=== PATIENT | female | born 1985 | race Caucasian/White ===

== ENCOUNTER 2017-08-20 05:20 | Inpatient (IN) | payer BC ==
[~2017-08-20] VITALS: Ht 162.6 cm; Wt 66.2 kg
[2017-08-20 05:20] VITALS: BP_SYST 118
[2017-08-20 06:30] VITALS: BP_SYST 123
[2017-08-20] MEDS ORDERED: OXYCODONE/ACETAMINOPHEN *10*mg/325 mg TABLET PO PRN ×3 (07:00→12:00)
[2017-08-20] MEDS ORDERED: CEFAZOLIN 2 GM IVPB PREMIX 50 ML IV SCH (07:00)
[2017-08-20] MEDS ORDERED: HYDROmorphone 1 MG INJ. 1 MG/ML AMPUL IVP PRN ×2 (07:00)
[2017-08-20] MEDS ORDERED: ZOLPIDEM TARTRATE 5 MG TABLET PO PRN (07:00)
[2017-08-20] MEDS ORDERED: HYDROmorphone 2 MG/ML VIAL IVP PRN (07:00)
[2017-08-20 07:50] VITALS: BP_SYST 122
[2017-08-20] MEDS ORDERED: LR 1,000 ML IV ONE (11:27)
[2017-08-20] MEDS ORDERED: NALBUPHINE HCL 10 MG/ML AMP IVP PRN (11:30)
[2017-08-20] MEDS ORDERED: NALOXONE HCL 0.4 MG/ML AMP (NARCAN) IVP PRN (11:30)
[2017-08-20] MEDS ORDERED: ONDANSETRON HCL 4 MG/2 ML VIAL IVP PRN ×2 (11:30)
[2017-08-20] MEDS ORDERED: KETOROLAC TROMETHAMINE 30 MG VIAL IM PRN (11:30)
[2017-08-20] MEDS ORDERED: ePHEDrine sulfate 50 MG/ML VIAL IVP PRN (11:30)
[2017-08-20] MEDS ORDERED: fentaNYL CITRATE/PF 100 MCG/2 ML AMP IVP PRN (11:30)
[2017-08-20] MEDS ORDERED: DEXAMETHASONE SOD PHOSPHATE 4 MG/ML VIAL IVP ONE (11:54)
[2017-08-20] MEDS ORDERED: SEVOFLURANE 15 MIN GAS INH ONE (11:54)
[2017-08-20] MEDS ORDERED: KETOROLAC TROMETHAMINE 30 MG VIAL IVP ONE (11:54)
[2017-08-20] MEDS ORDERED: ROCURONIUM BROMIDE 10 MG/ML (ZEMURON) IV ONE (11:54)
[2017-08-20] MEDS ORDERED: VECURONIUM BROMIDE 10 MG/VIAL (NORCURON) IV ONE (11:54)
[2017-08-20] MEDS ORDERED: METOCLOPRAMIDE HCL 10 MG/2 ML VIAL IVP ONE (11:54)
[2017-08-20] MEDS ORDERED: BUPIVACAINE /PF 0.5% 30 ML VIAL INJ ONE (11:54)
[2017-08-20] MEDS ORDERED: fentaNYL CITRATE/PF 100 MCG/2 ML AMP IVP ONE ×2 (11:54→12:37)
[2017-08-20] MEDS ORDERED: GLYCOPYRROLATE 0.2 MG/ML VIAL IJ ONE (11:54)
[2017-08-20] MEDS ORDERED: KETAMINE HCL 500 MG/10 ML VIAL IVP ONE (11:54)
[2017-08-20] MEDS ORDERED: MIDAZOLAM HCL 5 MG/ML VIAL (VERSED) IV ONE (11:54)
[2017-08-20] MEDS ORDERED: EPINEPHrine 1 MG/ML AMP IV ONE (11:54)
[2017-08-20] MEDS ORDERED: PROPOFOL 200MG/ 20ML VIAL (DIPRIVAN) IV ONE (11:54)
[2017-08-20] MEDS ORDERED: NS IRRIG SOLN 1000 ML IR ONE (11:54)
[2017-08-20] MEDS ORDERED: LR 1,000 ML IV.SOLN IV ONE (11:54)
[2017-08-20] MEDS ORDERED: MILK OF MAGNESIA 30 ML UDC PO PRN (12:00)
[2017-08-20] MEDS ORDERED: MORPHINE SULFATE 10 MG/ML VIAL IVP PRN ×2 (12:00)
[2017-08-20] MEDS ORDERED: BISACODYL 10 MG/SUPPOSITORY RC PRN (12:00)
[2017-08-20] MEDS ORDERED: METHOCARBAMOL 500 MG TABLET PO PRN (12:00)
[2017-08-20] MEDS ORDERED: DIPHENHYDRAMINE HCL 50 MG CAPSULE JT PRN (12:00)
[2017-08-20] MEDS ORDERED: ONDANSETRON HCL 4 MG/2 ML VIAL IVP ONE (12:15)
[2017-08-20] MEDS ORDERED: ONDANSETRON HCL 4 MG/2 ML VIAL ONE (12:18)
[2017-08-20] MEDS ORDERED: fentaNYL CITRATE/PF 100 MCG/2 ML AMP ONE (12:37)
[2017-08-20 13:15] VITALS: BP_SYST 109
[2017-08-20] MEDS ORDERED: COMMUNICATION ORDER XX ONE (14:00)
[2017-08-20] MEDS: MORPHINE SULFATE 10 MG/ML VIAL IVP PRN ×3 (14:30→21:16)
[2017-08-20] MEDS: ONDANSETRON HCL 4 MG/2 ML VIAL IVP PRN ×2 (14:44→19:04)
[2017-08-20] MEDS: CEFAZOLIN 2 GM IVPB PREMIX 50 ML IV SCH ×2 (14:57→21:19)
[2017-08-20] MEDS: DIPHENHYDRAMINE INJ 50 MG/ML VIAL IVP PRN ×2 (15:31→22:25)
[2017-08-20 15:55] VITALS: BP_SYST 109
[2017-08-20] MEDS: KCL 20 mEq in D5NS 1000 mL 1,000 ML IV SCH (18:12)
[2017-08-20 20:00] VITALS: BP_SYST 110
[2017-08-20] MEDS: DOCUSATE SODIUM 100 MG CAPSULE PO SCH (21:17)
[2017-08-21 00:23] VITALS: BP_SYST 99
[2017-08-21] MEDS: MORPHINE SULFATE 10 MG/ML VIAL IVP PRN ×2 (02:07→08:36)
[2017-08-21] MEDS: KCL 20 mEq in D5NS 1000 mL 1,000 ML IV SCH ×3 (02:40→22:40)
[2017-08-21] MEDS: ONDANSETRON HCL 4 MG/2 ML VIAL IVP PRN ×4 (02:45→20:26)
[2017-08-21] MEDS: OXYCODONE/ACETAMINOPHEN *10*mg/325 mg TABLET PO PRN ×4 (02:54→16:59)
[2017-08-21] MEDS: DIPHENHYDRAMINE INJ 50 MG/ML VIAL IVP PRN ×3 (05:37→21:48)
[2017-08-21] MEDS: CEFAZOLIN 2 GM IVPB PREMIX 50 ML IV SCH (05:43)
[2017-08-21 08:05] VITALS: BP_SYST 118
[2017-08-21] MEDS: DOCUSATE SODIUM 100 MG CAPSULE PO SCH ×2 (08:35→20:43)
[2017-08-21 12:06] VITALS: BP_SYST 119
[2017-08-21] MEDS: HYDROmorphone 2 MG TAB PO PRN ×2 (14:41→18:44)
[2017-08-21 16:00] VITALS: BP_SYST 107
[2017-08-21] MEDS: oxyCODONE HCL 10 MG TAB.ER.12H PO SCH (20:40)
[2017-08-21] MEDS: MEPERIDINE HCL/PF 50 MG/ML AMP IVP PRN (23:48)
[2017-08-22 00:08] VITALS: BP_SYST 126
[2017-08-22] MEDS: HYDROmorphone 2 MG TAB PO PRN ×5 (02:11→23:14)
[2017-08-22] MEDS: ONDANSETRON HCL 4 MG/2 ML VIAL IVP PRN ×4 (03:47→23:25)
[2017-08-22] MEDS: KCL 20 mEq in D5NS 1000 mL 1,000 ML IV SCH ×2 (03:48→13:44)
[2017-08-22] MEDS: DIPHENHYDRAMINE INJ 50 MG/ML VIAL IVP PRN ×4 (05:31→23:25)
[2017-08-22] MEDS: MEPERIDINE HCL/PF 50 MG/ML AMP IVP PRN ×4 (06:56→20:24)
[2017-08-22 07:54] VITALS: BP_SYST 111
[2017-08-22] MEDS: oxyCODONE HCL 10 MG TAB.ER.12H PO SCH ×3 (08:57→20:24)
[2017-08-22] MEDS: DOCUSATE SODIUM 100 MG CAPSULE PO SCH ×2 (08:57→20:24)
[2017-08-22] MEDS ORDERED: SCOPOLAMINE HYDROBROMIDE 1.5 MG PATCH .72 H (TRANSDERM-SCOP) TD SCH (09:30)
[2017-08-22 12:46] VITALS: BP_SYST 110
[2017-08-22 17:17] VITALS: BP_SYST 124
[2017-08-22 20:00] VITALS: BP_SYST 114
[2017-08-23] MEDS: MEPERIDINE HCL/PF 50 MG/ML AMP IVP PRN ×6 (00:38→21:39)
[2017-08-23] MEDS: HYDROmorphone 2 MG TAB PO PRN ×5 (02:59→23:02)
[2017-08-23] MEDS: KCL 20 mEq in D5NS 1000 mL 1,000 ML IV SCH ×2 (04:40→13:36)
[2017-08-23] MEDS: DIPHENHYDRAMINE INJ 50 MG/ML VIAL IVP PRN ×4 (04:52→23:09)
[2017-08-23 05:24] VITALS: BP_SYST 116
[2017-08-23 07:36] VITALS: BP_SYST 128
[2017-08-23 08:00] VITALS: BP_SYST 128
[2017-08-23] MEDS: DOCUSATE SODIUM 100 MG CAPSULE PO SCH ×2 (09:47→21:38)
[2017-08-23] MEDS: oxyCODONE HCL 10 MG TAB.ER.12H PO SCH ×3 (09:47→21:38)
[2017-08-23] MEDS: ONDANSETRON HCL 4 MG/2 ML VIAL IVP PRN ×3 (09:54→23:02)
[2017-08-23 12:52] VITALS: BP_SYST 117
[2017-08-23 16:50] VITALS: BP_SYST 115
[2017-08-23 19:05] VITALS: BP_SYST 121
[2017-08-24 00:06] VITALS: BP_SYST 126
[2017-08-24] MEDS: MEPERIDINE HCL/PF 50 MG/ML AMP IVP PRN ×4 (01:48→14:11)
[2017-08-24] MEDS: HYDROmorphone 2 MG TAB PO PRN ×4 (03:19→14:14)
[2017-08-24] MEDS: DIPHENHYDRAMINE INJ 50 MG/ML VIAL IVP PRN ×2 (05:01→11:18)
[2017-08-24] MEDS: ONDANSETRON HCL 4 MG/2 ML VIAL IVP PRN ×2 (06:44→14:10)
[2017-08-24 08:00] VITALS: BP_SYST 113
[2017-08-24] MEDS: oxyCODONE HCL 10 MG TAB.ER.12H PO SCH (08:57)
[2017-08-24] MEDS: DOCUSATE SODIUM 100 MG CAPSULE PO SCH (08:57)
[2017-08-24] MEDS ORDERED: OXYC10TA71 PO (10:32)
[2017-08-24] MEDS ORDERED: HYDR4TAB26 PO (10:33)
[2017-08-24 12:15] VITALS: BP_SYST 130
[2017-08-24 13:32] VITALS: BP_SYST 130
== END 2017-08-24 15:25 | disposition home or self-care (01) | DRG 30 ==
LOC: SED 05:20 → SMU 06:15 → STU 14:03
PROVIDERS: ADMIT Neurological Surgery; ATTEND Neurological Surgery
PROC: 00HU0MZ Insertion of Neurostimulator Lead into Spinal Canal, Open Approach (ICD-10-PCS; 2017-08-20)
PROC: 0JH70MZ Insertion of Stimulator Generator into Back Subcutaneous Tissue and Fascia, Open Approach (ICD-10-PCS; 2017-08-20)
PROC: 01N10ZZ Release Cervical Nerve, Open Approach (ICD-10-PCS; 2017-08-20)
PROC: 0JPT0MZ Removal of Stimulator Generator from Trunk Subcutaneous Tissue and Fascia, Open Approach (ICD-10-PCS; 2017-08-20)
PROC: 4B01XVZ Measurement of Peripheral Nervous Stimulator, External Approach (ICD-10-PCS; 2017-08-20)
PROC: 00PU0MZ Removal of Neurostimulator Lead from Spinal Canal, Open Approach (ICD-10-PCS; principal; 2017-08-20 07:30)
DX: T85.112A Breakdown (mechanical) of implanted electronic neurostimulator of spinal cord electrode (lead), initial encounter (principal); F32.9 Major depressive disorder, single episode, unspecified; T85.113A Breakdown (mechanical) of implanted electronic neurostimulator, generator, initial encounter; Y83.8 Other surgical procedures as the cause of abnormal reaction of the patient, or of later complication, without mention of misadventure at the time of the procedure; F41.9 Anxiety disorder, unspecified; M19.90 Unspecified osteoarthritis, unspecified site; G43.909 Migraine, unspecified, not intractable, without status migrainosus; Y92.89 Other specified places as the place of occurrence of the external cause; Z88.8 Allergy status to other drugs, medicaments and biological substances
CPT/HCPCS: 76000; 87081; 94010; 94760; 99285; J0171; J0690; J1100; J1200; J1885; J2175; J2250; J2270; J2405; J2704; J2765; J3010; J3490; J7120; Q0163